=== PATIENT | male | born 1975 | race African-American/Black ===

== ENCOUNTER 2017-12-04 13:35 | Emergency (ER) | payer MEDICAID, OTHER ==
[~2017-12-04] VITALS: Ht 195.6 cm; Wt 155.0 kg
[~2017-12-04 13:35] MED LIST: ASPI-430; CARI350T; COUMADIN; ESOM40CA; HYDR12.53; HYDR8TAB27; METF-162; NORVASC; OXYC-307; POTASSIUM; [UNRECOGNIZED DRUG - OTHER]
[2017-12-04] MEDS ORDERED: ASPIRIN 81 MG TABLET CHEW PO ONE (14:30)
[2017-12-04 14:44] LABS: ALBUMIN 3.8 g/dL (3.4-5.0); ANION GAP 7 mmol/L (5-15); CALCIUM 8.3 mg/dL (8.5-10.1); CHLORIDE 109 mmol/L (98-107); CREATININE 1.01 mg/dL (0.7-1.3)
[2017-12-04 14:47] LABS: BASOPHILS # (AUTO) 0.05 x10^3/uL (0-0.1); BASOPHILS % (AUTO) 1 % (0-1); EOSINOPHILS # (AUTO) 0.22 x10^3/uL (0-0.4); EOSINOPHILS % (AUTO) 3 % (1-7); LYMPHOCYTES # (AUTO) 2.36 x10^3/uL (1-3.4); LYMPHOCYTES % (AUTO) 28 % (22-44); MD NO; MEAN CORPUSCULAR HEMOGLOBIN 28.6 pg (27.5-34.5); MEAN CORPUSCULAR HGB CONC 32.9 g/dL (33.2-36.2); MEAN CORPUSCULAR VOLUME 86.8 fL (81-97); MEAN PLATELET VOLUME 8.2 fL (7.4-10.4); MONOCYTES # (AUTO) 0.65 x10^3/uL (0.2-0.8); MONOCYTES % (AUTO) 8 % (2-9); NEUTROPHILS # (AUTO) 5.22 x10^3/uL (1.8-6.8); NEUTROPHILS % (AUTO) 62 % (42-75); PLATELET COUNT 203 x10^3/uL (130-400); RED BLOOD COUNT 6.31 x10^6/uL (4.38-5.82); RED CELL DISTRIBUTION WIDTH 13.6 % (9.4-14.8); TROPONIN I < 0.015 ng/mL (0.000-0.045)
[2017-12-04 14:52] LABS: INTERNATIONAL NORMALIZED RATIO 1.17 (0.93-1.1)
[2017-12-04] MEDS ORDERED: ASPIRIN 81 MG TABLET CHEW ONE (15:52)
[2017-12-04] MEDS ORDERED: ENOXAPARIN 80 MG/0.8 ML ONE (17:19)
[2017-12-04] MEDS ORDERED: ENOXAPARIN 40 MG/0.4 ML ONE (17:22)
[2017-12-04 17:26] VITALS: BP 140/70
[2017-12-04] MEDS ORDERED: ENOXAPARIN 120MG/0.8ML SQ ONE (17:30)
== END 2017-12-04 17:29 | disposition home or self-care (01) ==
LOC: ED 17:23
DX: R00.2 Palpitations (principal); E11.9 Type 2 diabetes mellitus without complications; F17.210 Nicotine dependence, cigarettes, uncomplicated; Z79.01 Long term (current) use of anticoagulants; Z91.14 Patient's other noncompliance with medication regimen; Z91.19 Patient's noncompliance with other medical treatment and regimen
CPT/HCPCS: 36415; 71046; 80048; 82040; 84484; 85025; 85610; 93005; 96372; 99285; J1650

== ENCOUNTER 2018-05-22 01:48 | Emergency (ER) | payer MEDICAID ==
[~2018-05-22] VITALS: Ht 200.7 cm; Wt 158.3 kg
[2018-05-22] MEDS ORDERED: SODIUM CHLORIDE FLUSH 10ML SYR IVF ONE (02:30)
[2018-05-22] MEDS ORDERED: SODIUM CHLORIDE 0.9% 1,000ML IVBOLUS ONE (02:30)
[2018-05-22 02:37] LABS: BASOPHILS # (AUTO) 0.05 x10^3/uL (0-0.1); BASOPHILS % (AUTO) 1 % (0-1); EOSINOPHILS # (AUTO) 0.14 x10^3/uL (0-0.4); EOSINOPHILS % (AUTO) 2 % (1-7); LYMPHOCYTES # (AUTO) 2.03 x10^3/uL (1-3.4); LYMPHOCYTES % (AUTO) 22 % (22-44); MD NO; MEAN CORPUSCULAR HEMOGLOBIN 29.9 pg (27.5-34.5); MEAN CORPUSCULAR HGB CONC 33.6 g/dL (33.2-36.2); MEAN PLATELET VOLUME 8.9 fL (7.4-10.4); MONOCYTES # (AUTO) 0.66 x10^3/uL (0.2-0.8); MONOCYTES % (AUTO) 7 % (2-9); NEUTROPHILS # (AUTO) 6.38 x10^3/uL (1.8-6.8); NEUTROPHILS % (AUTO) 69 % (42-75); PLATELET COUNT 231 x10^3/uL (130-400); RED BLOOD COUNT 5.48 x10^6/uL (4.38-5.82); RED CELL DISTRIBUTION WIDTH 14.2 % (9.4-14.8)
[2018-05-22 02:47] LABS: INTERNATIONAL NORMALIZED RATIO 1.13 (0.93-1.1); PROTHROMBIN TIME 11.6 Seconds (9.6-11.5)
[2018-05-22 02:48] LABS: ALANINE AMINOTRANSFERASE 11 U/L (12-78); ALBUMIN 3.5 g/dL (3.4-5.0); ANION GAP 9 mmol/L (5-15); CALCIUM 8.2 mg/dL (8.5-10.1); CHLORIDE 113 mmol/L (98-107); CREATININE 1.05 mg/dL (0.7-1.3)
[2018-05-22 02:52] LABS: ALKALINE PHOSPHATASE 103 U/L (45-117); BILIRUBIN,TOTAL 1.7 mg/dL (0.2-1.0); TOTAL PROTEIN 7.2 g/dL (6.4-8.2); TROPONIN I < 0.015 ng/mL (0.000-0.045)
[2018-05-22 03:08] VITALS: BP 145/98
[2018-05-22] MEDS ORDERED: OMNIPAQUE 350 MG/ML, 100ML BOTTLE ONE (04:57)
== END 2018-05-22 04:21 | disposition home or self-care (01) ==
LOC: ED 04:15
DX: R06.00 Dyspnea, unspecified (principal); F17.210 Nicotine dependence, cigarettes, uncomplicated; Z72.9 Problem related to lifestyle, unspecified; E11.9 Type 2 diabetes mellitus without complications; Z86.718 Personal history of other venous thrombosis and embolism
CPT/HCPCS: 36415; 71275; 80053; 83880; 84484; 85025; 85610; 85730; 93005; 99285; 99406; J7030; Q9967

== ENCOUNTER 2018-10-17 06:50 | Emergency (ER) | payer MEDICAID ==
[~2018-10-17] VITALS: Ht 200.7 cm; Wt 155.8 kg
[~2018-10-17 06:50] MED LIST changes: +HYDR12.517; -HYDR12.53
--- NOTE | 2018-10-17 07:07 | NUR ---
PT PRESENTED TO ED WITH "MY HEART FEELS HEAVY SINCE THIS AM." PT A&OX4. EKG DONE IN TRIAGE. PT PLACED ON BP, CARDIAC AND CONT. PULSE OXIMETER. ASSESSMENT COMPLETED. AWAITING MD. CALL LIGHT IN REACH
[2018-10-17 07:38] LABS: BASOPHILS # (AUTO) 0.04 x10^3/uL (0-0.1); BASOPHILS % (AUTO) 0 % (0-1); EOSINOPHILS # (AUTO) 0.17 x10^3/uL (0-0.4); EOSINOPHILS % (AUTO) 2 % (1-7); LYMPHOCYTES # (AUTO) 1.96 x10^3/uL (1-3.4); LYMPHOCYTES % (AUTO) 19 % (22-44); MD NO; MEAN CORPUSCULAR HEMOGLOBIN 29.8 pg (27.5-34.5); MEAN CORPUSCULAR HGB CONC 33.4 g/dL (33.2-36.2); MEAN CORPUSCULAR VOLUME 89.2 fL (81-97); MEAN PLATELET VOLUME 8.4 fL (7.4-10.4); MONOCYTES # (AUTO) 0.66 x10^3/uL (0.2-0.8); MONOCYTES % (AUTO) 6 % (2-9); NEUTROPHILS # (AUTO) 7.46 x10^3/uL (1.8-6.8); NEUTROPHILS % (AUTO) 73 % (42-75); PLATELET COUNT 205 x10^3/uL (130-400); RED BLOOD COUNT 5.92 x10^6/uL (4.38-5.82); RED CELL DISTRIBUTION WIDTH 13.7 % (9.4-14.8)
[2018-10-17 07:51] LABS: INTERNATIONAL NORMALIZED RATIO 1.09 (0.93-1.1); PROTHROMBIN TIME 11.4 Seconds (9.6-11.5)
[2018-10-17 07:52] LABS: ALANINE AMINOTRANSFERASE 16 U/L (12-78); ALBUMIN 3.9 g/dL (3.4-5.0); ANION GAP 6 mmol/L (5-15); CALCIUM 8.5 mg/dL (8.5-10.1); CHLORIDE 112 mmol/L (98-107); CREATININE 0.95 mg/dL (0.7-1.3)
[2018-10-17 07:56] LABS: ALKALINE PHOSPHATASE 88 U/L (45-117); BILIRUBIN,TOTAL 1.3 mg/dL (0.2-1.0); TOTAL PROTEIN 7.3 g/dL (6.4-8.2); TROPONIN I < 0.015 ng/mL (0.000-0.045)
[2018-10-17 08:53] VITALS: BP 140/101
--- NOTE | 2018-10-17 08:53 | NUR ---
pt up for recheck.
[2018-10-17] MEDS ORDERED: ENOXAPARIN 150 MG/ML SQ ONE (09:30)
== END 2018-10-17 10:30 | disposition home or self-care (01) ==
LOC: ED 07:57
DX: R07.89 Other chest pain (principal); R06.02 Shortness of breath; Z76.0 Encounter for issue of repeat prescription; Z86.73 Personal history of transient ischemic attack (TIA), and cerebral infarction without residual deficits; E11.9 Type 2 diabetes mellitus without complications
CPT/HCPCS: 36415; 70450; 71045; 80053; 84484; 85025; 85610; 85730; 93005; 96372; 99284; J1650

== ENCOUNTER 2019-03-09 01:34 | Emergency (ER) | payer MEDICAID ==
[~2019-03-09] VITALS: Ht 198.1 cm; Wt 156.0 kg
[2019-03-09] MEDS ORDERED: ONDANSETRON 2MG/ML, 2ML ONE (02:21)
[2019-03-09] MEDS ORDERED: ASPIRIN 81 MG TABLET CHEW ONE (02:22)
[2019-03-09] MEDS ORDERED: MORPHINE SULFATE 4 MG/ML, 1ML ONE (02:22)
[2019-03-09] MEDS ORDERED: ONDANSETRON 2MG/ML, 2ML IVPush ONE (02:30)
[2019-03-09] MEDS ORDERED: ASPIRIN 81 MG TABLET CHEW PO ONE (02:30)
[2019-03-09] MEDS ORDERED: MORPHINE SULFATE 4 MG/ML, 1ML IVPush PRN (02:30)
[2019-03-09 02:31] LABS: BASOPHILS # (AUTO) 0.08 x10^3/uL (0-0.1); BASOPHILS % (AUTO) 1 % (0-1); EOSINOPHILS # (AUTO) 0.08 x10^3/uL (0-0.4); EOSINOPHILS % (AUTO) 1 % (1-7); LYMPHOCYTES # (AUTO) 2.48 x10^3/uL (1-3.4); LYMPHOCYTES % (AUTO) 15 % (22-44); MD NO; MEAN CORPUSCULAR HEMOGLOBIN 30.3 pg (27.5-34.5); MEAN CORPUSCULAR HGB CONC 33.1 g/dL (33.2-36.2); MEAN CORPUSCULAR VOLUME 91.7 fL (81-97); MEAN PLATELET VOLUME 8.6 fL (7.4-10.4); MONOCYTES # (AUTO) 0.99 x10^3/uL (0.2-0.8); MONOCYTES % (AUTO) 6 % (2-9); NEUTROPHILS # (AUTO) 12.53 x10^3/uL (1.8-6.8); NEUTROPHILS % (AUTO) 78 % (42-75); PLATELET COUNT 230 x10^3/uL (130-400); RED BLOOD COUNT 5.66 x10^6/uL (4.38-5.82); RED CELL DISTRIBUTION WIDTH 14.1 % (9.4-14.8)
[2019-03-09 02:43] LABS: ALBUMIN 3.6 g/dL (3.4-5.0); ANION GAP 8 mmol/L (5-15); CALCIUM 8.8 mg/dL (8.5-10.1); CHLORIDE 108 mmol/L (98-107); CREATININE 1.13 mg/dL (0.7-1.3)
[2019-03-09 02:47] LABS: TROPONIN I < 0.015 ng/mL (0.000-0.045)
[2019-03-09] MEDS ORDERED: IPRA12.9 INH (02:48)
[2019-03-09] MEDS ORDERED: PROMETHAZINE (02:48)
[2019-03-09] MEDS ORDERED: APIX5TAB PO (02:48)
--- NOTE | 2019-03-09 02:53 | NUR ---
IV STARTED, PT IN HOSPITAL GOWN. PT MEDICATED PER EMAR FOR PAIN. PT ON CARDIAC AND VITALS MONITORS. PT TO CT AT THIS TIME.
--- NOTE | 2019-03-09 03:43 | NUR ---
PT UP FOR RECHECK. ALL RESULTS BACK
[2019-03-09 04:45] VITALS: BP 128/99
== END 2019-03-09 04:47 | disposition home or self-care (01) ==
LOC: ED 04:41
DX: R07.89 Other chest pain (principal); R20.9 Unspecified disturbances of skin sensation; F17.200 Nicotine dependence, unspecified, uncomplicated; E11.9 Type 2 diabetes mellitus without complications; Z86.73 Personal history of transient ischemic attack (TIA), and cerebral infarction without residual deficits
CPT/HCPCS: 36415; 70450; 80048; 82040; 84484; 85025; 93005; 96374; 96375; 99284; J2270; J2405

== ENCOUNTER 2019-10-21 12:39 | Emergency (ER) | payer MEDICAID ==
[~2019-10-21] VITALS: Ht 198.1 cm; Wt 151.9 kg
[~2019-10-21 12:39] MED LIST changes: +APIX5TAB PO; +IPRA12.9 INH; +PROMETHAZINE
[2019-10-21 13:35] VITALS: BP 138/93
[2019-10-21] MEDS ORDERED: CEPHALEXIN 500 MG CAPSULE ONE (14:28)
[2019-10-21] MEDS ORDERED: CEPHALEXIN 500 MG CAPSULE PO ONE (14:30)
--- NOTE | 2019-10-21 14:44 | NUR ---
Patient/Caregiver given discharge instructions and they have confirmed that they understand the instructions. Patient ambulatory with steady gait TO WHEELCHAIR. RIENE BANDAGE APPLIED TO RIGHT ANKLE. PT LEFT WITH ALL PERSONAL BELONGINGS.
== END 2019-10-21 14:48 | disposition home or self-care (01) ==
LOC: ED 14:29
DX: S93.402A Sprain of unspecified ligament of left ankle, initial encounter (principal); L03.114 Cellulitis of left upper limb; E11.9 Type 2 diabetes mellitus without complications; Z86.73 Personal history of transient ischemic attack (TIA), and cerebral infarction without residual deficits; W01.0XXA Fall on same level from slipping, tripping and stumbling without subsequent striking against object, initial encounter; Y93.89 Activity, other specified; Y92.009 Unspecified place in unspecified non-institutional (private) residence as the place of occurrence of the external cause; Y99.8 Other external cause status
CPT/HCPCS: 99284

== ENCOUNTER 2020-02-14 11:37 | Emergency (ER) | payer MEDICAID ==
[~2020-02-14] VITALS: Ht 198.1 cm; Wt 167.0 kg
--- NOTE | 2020-02-14 12:34 | NUR ---
PT HAS CO BACK SPASMS FOR 2 DAYS W CHEST PAIN. PT DENIES SOB, OR COUGH. CHEST INTERMITTENT. IV ESTABLISHED, HARDWARE DEVELOPER,
[2020-02-14 12:43] LABS: BASOPHILS # (AUTO) 0.03 x10^3/uL (0-0.1); BASOPHILS % (AUTO) 0 % (0-1); EOSINOPHILS # (AUTO) 0.01 x10^3/uL (0-0.4); EOSINOPHILS % (AUTO) 0 % (1-7); LYMPHOCYTES # (AUTO) 1.49 x10^3/uL (1-3.4); LYMPHOCYTES % (AUTO) 12 % (22-44); MD NO; MEAN CORPUSCULAR HEMOGLOBIN 29.7 pg (27.5-34.5); MEAN CORPUSCULAR HGB CONC 33.4 g/dL (33.2-36.2); MEAN CORPUSCULAR VOLUME 88.9 fL (81-97); MEAN PLATELET VOLUME 9.9 fL (7.4-10.4); MONOCYTES # (AUTO) 0.95 x10^3/uL (0.2-0.8); MONOCYTES % (AUTO) 8 % (2-9); NEUTROPHILS # (AUTO) 9.67 x10^3/uL (1.8-6.8); NEUTROPHILS % (AUTO) 80 % (42-75); PLATELET COUNT 184 x10^3/uL (130-400); RED BLOOD COUNT 6.03 x10^6/uL (4.38-5.82); RED CELL DISTRIBUTION WIDTH 13.4 % (9.4-14.8)
[2020-02-14 12:49] LABS: ALANINE AMINOTRANSFERASE 16 U/L (12-78); ALBUMIN 4.3 g/dL (3.4-5.0); ANION GAP 9 mmol/L (5-15); CALCIUM 9.3 mg/dL (8.5-10.1); CHLORIDE 104 mmol/L (98-107); CREATININE 2.03 mg/dL (0.7-1.3)
[2020-02-14 12:53] LABS: ALKALINE PHOSPHATASE 89 U/L (45-117); BILIRUBIN,TOTAL 1.5 mg/dL (0.2-1.0); TOTAL PROTEIN 8.5 g/dL (6.4-8.2); TROPONIN I < 0.015 ng/mL (0.000-0.045)
--- NOTE | 2020-02-14 13:08 | NUR ---
CT CALLED TO SEE WHERE PT IS IN LINE FOR ORDERED CTA. TECH STATED THEY WERE WAITING ON LABS, WHICH ARE BACK. PT SHOULD GO BACK SOON.
[2020-02-14] MEDS ORDERED: SODIUM CHLORIDE 0.9% 1,000ML IVBOLUS ONE (13:30)
[2020-02-14] MEDS ORDERED: OMNIPAQUE 350 MG/ML, 75ML BOTTLE ONE (13:48)
[2020-02-14] MEDS ORDERED: ACETAMINOPHEN 500 MG TABLET ONE (13:49)
[2020-02-14] MEDS ORDERED: DIAZEPAM 5 MG TABLET ONE (13:49)
[2020-02-14] MEDS ORDERED: ACETAMINOPHEN 500 MG TABLET PO ONE (14:00)
[2020-02-14] MEDS ORDERED: DIAZEPAM 5 MG TABLET PO ONE (14:00)
--- NOTE | 2020-02-14 14:12 | NUR ---
MEDICATED PER ORDERS. [facility]A SENT. VSS
[2020-02-14 14:42] LABS: MICROSCOPIC INDICATED
[2020-02-14 14:54] LABS: INTERNATIONAL NORMALIZED RATIO 1.2 (0.93-1.1); PROTHROMBIN TIME 12.7 Seconds (9.6-11.5)
--- NOTE | 2020-02-14 15:34 | NUR ---
pt in imaging
[2020-02-14 16:02] VITALS: BP 114/73
--- NOTE | 2020-02-14 16:03 | NUR ---
PT BACK IN ROOM, WAITING FOR RESULTS. PT GIVEN ICE WATER. VSS.
[2020-02-14] MEDS ORDERED: Enoxaparin 1 mg/kg protocol SQ ONE (17:00)
[2020-02-14] MEDS ORDERED: WARFARIN 7.5 MG TABLET PO-COUM ONE (17:00)
[2020-02-14] MEDS ORDERED: ENOXAPARIN 80 MG/0.8 ML SQ ONE (17:00)
[2020-02-14] MEDS ORDERED: ENOXAPARIN 80 MG/0.8 ML ONE ×2 (17:19→17:24)
--- NOTE | 2020-02-14 17:30 | NUR ---
MEDICATED PER ORDERS. READ FOR DC
--- NOTE | 2020-02-14 17:35 | NUR ---
Patient/Caregiver given discharge instructions and they have confirmed that they understand the instructions. Patient ambulatory with steady gait.
== END 2020-02-14 17:37 | disposition home or self-care (01) ==
LOC: ED 12:00
DX: R07.89 Other chest pain (principal); R00.2 Palpitations; M54.5 Low back pain; Z72.9 Problem related to lifestyle, unspecified; R00.0 Tachycardia, unspecified; E11.9 Type 2 diabetes mellitus without complications; Z86.73 Personal history of transient ischemic attack (TIA), and cerebral infarction without residual deficits
CPT/HCPCS: 36415; 71275; 78582; 80053; 81001; 83880; 84484; 85025; 85610; 93005; 96372; 99285; A9540; A9558; J1650; J7030; Q9967; 99284

== ENCOUNTER 2020-02-17 23:13 | Emergency (ER) | payer MEDICAID ==
[~2020-02-17] VITALS: Ht 198.1 cm; Wt 153.7 kg
[2020-02-18 00:24] LABS: BASOPHILS # (AUTO) 0.05 x10^3/uL (0-0.1); BASOPHILS % (AUTO) 0 % (0-1); EOSINOPHILS # (AUTO) 0.06 x10^3/uL (0-0.4); EOSINOPHILS % (AUTO) 1 % (1-7); LYMPHOCYTES % (AUTO) 23 % (22-44); MD NO; MEAN CORPUSCULAR HEMOGLOBIN 29.5 pg (27.5-34.5); MEAN CORPUSCULAR HGB CONC 33.6 g/dL (33.2-36.2); MEAN CORPUSCULAR VOLUME 87.6 fL (81-97); MEAN PLATELET VOLUME 9.6 fL (7.4-10.4); MONOCYTES # (AUTO) 1.04 x10^3/uL (0.2-0.8); MONOCYTES % (AUTO) 9 % (2-9); NEUTROPHILS # (AUTO) 8.08 x10^3/uL (1.8-6.8); NEUTROPHILS % (AUTO) 68 % (42-75); PLATELET COUNT 188 x10^3/uL (130-400); RED BLOOD COUNT 5.65 x10^6/uL (4.38-5.82); RED CELL DISTRIBUTION WIDTH 13.7 % (9.4-14.8)
[2020-02-18] MEDS ORDERED: ACETAMINOPHEN 500 MG TABLET PO ONE (00:30)
[2020-02-18 00:41] LABS: ALANINE AMINOTRANSFERASE 21 U/L (12-78); ALBUMIN 4.1 g/dL (3.4-5.0); ALKALINE PHOSPHATASE 82 U/L (45-117); ANION GAP 11 mmol/L (5-15); BILIRUBIN,TOTAL 1.2 mg/dL (0.2-1.0); CALCIUM 8.9 mg/dL (8.5-10.1); CHLORIDE 105 mmol/L (98-107); CREATININE 1.46 mg/dL (0.7-1.3); TOTAL PROTEIN 8.1 g/dL (6.4-8.2); TROPONIN I < 0.015 ng/mL (0.000-0.045)
[2020-02-18 00:57] LABS: INTERNATIONAL NORMALIZED RATIO 1.08 (0.93-1.1); PROTHROMBIN TIME 11.5 Seconds (9.6-11.5)
[2020-02-18 01:39] VITALS: BP 107/69
--- NOTE | 2020-02-18 01:57 | NUR ---
REPORT FROM JUAN FRANCISCO DAVALOS.
--- NOTE | 2020-02-18 02:55 | NUR ---
Patient/Caregiver given discharge instructions and they have confirmed that they understand the instructions. Patient ambulatory with steady gait.
== END 2020-02-18 02:57 | disposition home or self-care (01) ==
LOC: ED 02-18 00:20
DX: N28.9 Disorder of kidney and ureter, unspecified (principal); R07.89 Other chest pain; R05 Cough; R51 Headache; R19.7 Diarrhea, unspecified; R00.0 Tachycardia, unspecified; E11.9 Type 2 diabetes mellitus without complications; Z86.73 Personal history of transient ischemic attack (TIA), and cerebral infarction without residual deficits; Z79.01 Long term (current) use of anticoagulants
CPT/HCPCS: 36415; 71045; 80053; 83880; 84484; 85025; 85610; 93005; 99285

== ENCOUNTER 2020-05-03 14:56 | Emergency (ER) | payer MEDICAID ==
[~2020-05-03] VITALS: Ht 198.1 cm; Wt 162.6 kg
[2020-05-03 14:58] VITALS: BP 132/94
[2020-05-03] MEDS ORDERED: OXYcodone/APAP 5/325MG TABLET PO ONE (15:30)
[2020-05-03] MEDS ORDERED: OXYcodone/APAP 5/325MG TABLET ONE (15:32)
--- NOTE | 2020-05-03 15:37 | NUR ---
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
== END 2020-05-03 15:53 ==
LOC: ED 15:20
DX: I82.509 Chronic embolism and thrombosis of unspecified deep veins of unspecified lower extremity (principal); M54.5 Low back pain; I49.3 Ventricular premature depolarization; Z76.0 Encounter for issue of repeat prescription; E11.9 Type 2 diabetes mellitus without complications; F17.200 Nicotine dependence, unspecified, uncomplicated; Z86.73 Personal history of transient ischemic attack (TIA), and cerebral infarction without residual deficits
CPT/HCPCS: 93005; 99283

== ENCOUNTER 2020-05-09 09:05 | Emergency (ER) | payer MEDICAID ==
[~2020-05-09] VITALS: Ht 198.1 cm; Wt 163.0 kg
--- NOTE | 2020-05-09 09:38 | NUR ---
PT WITH RECENT "NEW STRAIN OF WEED" HAS BEEN FEELING PALPITATION AFTER SMOKING APPROX 0920 THIS AM. PT DENIES CP. PT TO ALL MONITORS, ERP IN TO EVAL PT AT THIS TIME
[2020-05-09 10:02] LABS: BASOPHILS # (AUTO) 0.04 x10^3/uL (0-0.1); BASOPHILS % (AUTO) 0 % (0-1); EOSINOPHILS # (AUTO) 0.39 x10^3/uL (0-0.4); EOSINOPHILS % (AUTO) 4 % (1-7); LYMPHOCYTES # (AUTO) 2.07 x10^3/uL (1-3.4); LYMPHOCYTES % (AUTO) 21 % (22-44); MD NO; MEAN CORPUSCULAR HEMOGLOBIN 29.9 pg (27.5-34.5); MEAN CORPUSCULAR HGB CONC 33.2 g/dL (33.2-36.2); MEAN CORPUSCULAR VOLUME 89.9 fL (81-97); MEAN PLATELET VOLUME 8.8 fL (7.4-10.4); MONOCYTES % (AUTO) 5 % (2-9); NEUTROPHILS # (AUTO) 6.99 x10^3/uL (1.8-6.8); NEUTROPHILS % (AUTO) 70 % (42-75); PLATELET COUNT 220 x10^3/uL (130-400); RED BLOOD COUNT 5.66 x10^6/uL (4.38-5.82); RED CELL DISTRIBUTION WIDTH 14.1 % (9.4-14.8)
[2020-05-09 10:12] LABS: ALANINE AMINOTRANSFERASE 12 U/L (12-78); ALBUMIN 3.4 g/dL (3.4-5.0); ANION GAP 9 mmol/L (5-15); CALCIUM 8.5 mg/dL (8.5-10.1); CHLORIDE 109 mmol/L (98-107); CREATININE 1.06 mg/dL (0.7-1.3)
[2020-05-09 10:17] LABS: ALKALINE PHOSPHATASE 89 U/L (45-117); BILIRUBIN,TOTAL 0.4 mg/dL (0.2-1.0); TOTAL PROTEIN 7.2 g/dL (6.4-8.2); TROPONIN I < 0.015 ng/mL (0.000-0.045)
[2020-05-09 10:23] VITALS: BP 119/83
== END 2020-05-09 11:44 | disposition home or self-care (01) ==
LOC: ED 10:02
DX: R00.2 Palpitations (principal); R06.02 Shortness of breath; R07.89 Other chest pain; I49.3 Ventricular premature depolarization; E11.9 Type 2 diabetes mellitus without complications; Z86.718 Personal history of other venous thrombosis and embolism; Z86.73 Personal history of transient ischemic attack (TIA), and cerebral infarction without residual deficits
CPT/HCPCS: 36415; 71045; 80053; 84443; 84484; 85025; 93005; 99285